=== PATIENT | male | born 1990 | race Caucasian/White ===

== ENCOUNTER 2021-09-05 03:46 | Emergency (ER) | payer MEDICAID ==
--- NOTE | 2021-09-05 03:56 | NUR ---
STARTED TO TRIAGE PATIENT. PATIENT ACTING AGGRESSIVELY, AND STATES "HE DOESNT WANT TO BE SEEN ANYMORE, YOU ARE A DANIELA"/. PATIENT LEFT WITHOUT BEING SEEN.
== END 2021-09-05 04:06 | disposition left against medical advice (07) ==
LOC: ER 03:46
DX: Z53.21 Procedure and treatment not carried out due to patient leaving prior to being seen by health care provider (principal)

== ENCOUNTER 2021-09-21 17:46 | Emergency (ER) | payer MEDICAID ==
[~2021-09-21] VITALS: Ht 182.9 cm; Wt 90.7 kg
[2021-09-21] MEDS ORDERED: KETOROLAC TROMETHAMINE 15 MG/ML VIAL ONE (18:51)
[2021-09-21] MEDS ORDERED: KETOROLAC TROMETHAMINE INJ 30 MG/ML VIAL IV ONE (19:00)
[2021-09-21] MEDS ORDERED: PIPERACILLIN /TAZOBACTAM 2.25 G in IV D5W 50 ML IV ONE (19:00)
[2021-09-21] MEDS ORDERED: IOHEXOL-300 100 ML VIAL IV ONE (19:11)
[2021-09-21] MEDS ORDERED: IV NS 0.9% 250 ML IV ONE (19:11)
[2021-09-21 19:22] LABS: CALCIUM, SERUM 9.1 mg/dL (8.5-10.1); CREATININE 1.1 mg/dL (0.6-1.3); POTASSIUM 4.2 mmol/L (3.5-5.1)
[2021-09-21 19:25] LABS: C-REACTIVE PROTEIN 4.5 mg/dL (0.0-0.9)
[2021-09-21 19:54] LABS: BASOPHILS % (AUTO) 0.3 % (0.0-2.0); EOSINOPHILS % (AUTO) 0.2 % (0.0-6.0); HEMATOCRIT 42 % (39-51); HEMOGLOBIN 14.1 g/dL (13.5-17.5); LYMPHOCYTES # (AUTO) 0.8 K/uL (0.8-4.8); MEAN CORPUSCULAR HGB CONC 33 g/dl (31.0-36.0); MEAN CORPUSCULAR VOLUME 90 fL (80-96); MONOCYTES # (AUTO) 0.9 K/uL (0.1-1.30); MONOCYTES % (AUTO) 6.8 % (2.0-12.0); NEUTROPHILS # (AUTO) 11.5 K/uL (1.8-8.9); NEUTROPHILS % (AUTO) 86.7 % (43.0-81.0); PLATELET COUNT (AUTO) 234 K/uL (150-450); WHITE BLOOD COUNT (AUTO) 13.3 K/uL (4.3-11.0)
[2021-09-21 21:56] VITALS: BP 134/78
== END 2021-09-22 00:20 | disposition short-term general hospital (02) ==
LOC: ER 17:50
DX: K04.7 Periapical abscess without sinus (principal); M27.2 Inflammatory conditions of jaws; Z59.00 Homelessness unspecified; Z20.822 Contact with and (suspected) exposure to COVID-19
CPT/HCPCS: 36415; 70487; 80048; 85025; 85652; 86140; 87081; 87426; 96365; 96375; 99285; C9803; J1885; J2543; J7050; J7060; Q9967